=== PATIENT | female | born 1945 | race Caucasian/White ===

== ENCOUNTER → 2021-02-13 | Outpatient (CLI) | payer MEDICARE ==
[~2021-02-13] MED LIST: ALPRAZOLAM0.5 MG PO; AMITIZA24 MCG PO; CHLORTHALIDONE25 MG PO; COLACE100 MG PO; CYCLOBENZAPRINE10 MG PO; MAGNESIUM CITR296 ML PO; MONTELUKAST SOD10 MG PO; NORCO 5-325 TA1 EACH PO; NORCO 7.5-3251 EACH PO; TRAMADOL HCL50 MG PO; WELLBUTRIN XL300 MG PO; ZOFRAN4 MG PO
== END ==
LOC: KOH-I 10:34
DX: M25.511 Pain in right shoulder (principal); S46.011A Strain of muscle(s) and tendon(s) of the rotator cuff of right shoulder, initial encounter; R93.7 Abnormal findings on diagnostic imaging of other parts of musculoskeletal system
CPT/HCPCS: 73221

== ENCOUNTER → 2021-02-27 | Outpatient (CLI) | payer MEDICARE | LOC: KOH-I 13:32 | DX: M25.511 Pain in right shoulder (principal); R93.7 Abnormal findings on diagnostic imaging of other parts of musculoskeletal system | CPT/HCPCS: 71550 ==

== ENCOUNTER → 2021-07-22 | Outpatient (CLI) | payer MEDICARE ==
[2021-07-24 15:11] LABS: GAD-65 AUTOANTIBODY 217.5 U/mL (0.0-5.0)
== END ==
LOC: LAB 07:49
PROVIDERS: Nurse Practitioner Family
DX: K92.9 Disease of digestive system, unspecified (principal)
CPT/HCPCS: 36415; 80053; 82784; 83519; 84155; 84165; 85652; 86255; 86334; 86337; 86341